=== PATIENT | male | born 1970 | race Caucasian/White ===

== ENCOUNTER 2020-01-24 08:48 | Day surgery (SDC) | payer MEDICAID ==
[~2020-01-24 08:48] MED LIST: Lactated Ringers 1,000 ML IV SCH; Lidocaine 1%/Sod Bicarbonate in NS 8.4% 1 ML Syringe IDERM PRN; Sodium Chloride 0.9% 10 ML Syringe FLUSH PRN
--- NOTE | 2020-01-24 09:32 | PCM.PREANE ---
Preanesthetic Assessment - Anesthesia/Transfusion/Family Hx Anesthesia History: Prior Anesthesia Without Reaction Family History of Anesthesia Reaction: No Transfusion History: No Prior Transfusion(s) Intubation History: Unknown - Review of Systems General: No Symptoms Pulmonary: No Symptoms (Smoker: 1ppd times 30 years ETOH: occasionally History of Methamphetamine ause:2months ago), Shortness of Breath Cardiovascular: No Symptoms (History of paroxysmal A-fibrillation/History of HTN ), Dyspnea on Exertion, Lightheadedness (positional changes) Gastrointestinal: No Symptoms (GERD), Constipation, Diarrhea, Difficulty Swallowing Neurological: No Symptoms, Numbness (bilateral hands on occasion.) Other: Reports: Easy Bruising, Diabetes (0630 DQ=375), Liver Problems, Depression (unemployed and depressed but not treated.) - Physical Assessment NPO Status Date: 01/24/20 NPO Status Time: 11:00 Vital Signs: Last Vital Signs Temp 36.8 C 01/24/20 08:55 Pulse 97 01/24/20 08:55 Resp 16 01/24/20 08:55 BP 147/89 H 01/24/20 08:55 Pulse Ox 98 01/24/20 08:55 Height: 1.73 m Weight: 70.307 kg ASA Class: 2 Mental Status: Alert & Oriented x3 Airway Class: Mallampati = 2 Dentition: Reports: Edentulous Thyro-Mental Finger Breadths: 3 Mouth Opening Finger Breadths: 3 ROM/Head Extension: Full Lungs: Clear to Auscultation, Normal Respiratory Effort Cardiovascular: Regular Rate, No Murmurs, Irregular Rhythm (history of paraxysmal atrial fibrillaton.) - Allergies Allergies/Adverse Reactions: Allergies Allergy/AdvReac Type Severity Reaction Status Date / Time No Known Allergies Allergy Verified 01/23/20 12:17 - Anesthesia Plan Pre-Op Medication Ordered: None - Acknowledgements Anesthesia Type Planned: MAC Pt an Appropriate Candidate for the Planned Anesthesia: Yes Alternatives and Risks of Anesthesia Discussed w Pt/Guardian: Yes Pt/Guardian Understands and Agrees with Anesthesia Plan: Yes PreAnesthesia Questionnaire HEENT History: Reports: None Cardiovascular History: Reports: Afib, Other (See Below) Other Cardiovascular History: HYPOTENSION Respiratory History: Reports: None Gastrointestinal History: Reports: Chronic Diarrhea, GERD Genitourinary History: Reports: None [employer] History: Reports: None Musculoskeletal History: Reports: None Neurological History: Reports: None Psychiatric History: Reports: Addiction Endocrine/Metabolic History: Reports: Diabetes, Type II Hematologic History: Reports: None Immunologic History: Reports: None Oncologic (Cancer) History: Reports: None Dermatologic History: Reports: None - Past Surgical History Head Surgeries/Procedures: Reports: None HEENT Surgical History: Reports: None Respiratory Surgical History: Reports: None GI Surgical History: Reports: Appendectomy Female Surgical History: Reports: None Male Surgical History: Reports: None Endocrine Surgical History: Reports: None Neurological Surgical History: Reports: None Musculoskeletal Surgical History: Reports: None Oncologic Surgical History: Reports: None Dermatological Surgical History: Reports: None - SUBSTANCE USE Smoking Status *Q: Current Every Day Smoker Recreational Drug Use History: Yes Recreational Drug Type: Reports: Marijuana/Hashish, Methamphetamine - HOME MEDS Home Medications: Home Meds Insulin Glarg,Human.Rec.Analog [Lantus] 54 units SQ QAM 01/23/20 [History] SitaGLIPtin [Januvia] 100 mg PO DAILY 01/23/20 [History] atorvaSTATin Calcium [Lipitor] 40 mg PO DAILY 01/23/20 [History] metFORMIN HCl [Metformin HCl] 1,000 mg PO BIDAC 01/23/20 [History] Omeprazole 20 mg PO DAILY 01/24/20 [History] - CURRENT (IN HOUSE) MEDS Current Meds: Current Medications Lactated Ringer's (Ringers, Lactated) 1,000 mls @ 125 mls/hr IV ASDIRECTED KRISTIN Stop: 01/24/20 23:00 Lidocaine/Sodium Bicarbonate (Buffered Lidocaine 1% In Ns 8.4%) 0.25 ml IDERM ONETIME PRN PRN Reason: Prior to IV Start Stop: 01/24/20 18:00 Sodium Chloride (Saline Flush) 10 ml FLUSH ASDIRECTED PRN PRN Reason: Keep Vein Open Stop: 01/24/20 18:00
[2020-01-24] MEDS ORDERED: Lidocaine 1% 4 ML ONE (10:06)
[2020-01-24] MEDS ORDERED: Midazolam 1 MG/ML 2 ML SDV ONE (10:06)
[2020-01-24] MEDS ORDERED: fentaNYL 100 MCG/2 ML SDV ONE (10:06)
[2020-01-24] MEDS ORDERED: Propofol 200 MG/20 ML SDV ONE ×2 (10:06→11:21)
[2020-01-24] MEDS ORDERED: Lactated Ringers 1,000 ML ONE (11:14)
--- NOTE | 2020-01-24 12:05 | PCM48HPAN ---
Post Anesthesia Note - EVALUATION WITHIN 48HRS OF ANESTHETIC Vital Signs in Normal Range: Yes Patient Participated in Evaluation: Yes Respiratory Function Stable: Yes Airway Patent: Yes Cardiovascular Function Stable: Yes Hydration Status Stable: Yes Pain Control Satisfactory: Yes Nausea and Vomiting Control Satisfactory: Yes Mental Status Recovered: Yes Vital Signs: Last Vital Signs Temp 36.8 C 01/24/20 08:55 Pulse 97 01/24/20 08:55 Resp 16 01/24/20 08:55 BP 147/89 H 01/24/20 08:55 Pulse Ox 98 01/24/20 08:55 - COMMENTS/OBSERVATIONS Free Text/Narrative:: no anesthesia complications noted
--- NOTE | 2020-01-24 12:52 | PROC ---
DATE OF OPERATION: 01/24/2020 SURGEON: Nena Rodgers MD PREOPERATIVE DIAGNOSES: 1. Heartburn and gastroesophageal reflux disease. 2. Need for colonoscopy due to diarrhea. POSTOPERATIVE DIAGNOSES: 1. Esophagitis. 2. Gastritis. 3. Colonic polyps. 4. Grade 2 hemorrhoids. PROCEDURES: 1. Esophagogastroduodenoscopy with biopsies. 2. Colonoscopy with polypectomy. ESTIMATED BLOOD LOSS: Minimal. COMPLICATIONS: None. INDICATION AND CONSENT: Mr. Daugherty is a 49-year-old male who has been having severe heartburn and reflux for several years. The patient has been taking some Tums and avoiding spicy foods, which helps with his symptoms. He also had been having intermittent diarrhea and sometimes mild left-sided abdominal pain. The patient presented to my clinic and discussed with him these symptoms and recommended EGD and colonoscopy to further evaluate him. We discussed risks, benefits, and alternatives. Risks discussed include perforation, bleeding, need for additional procedures, and reaction to medication. The patient asked many questions, which were answered and informed consent was obtained. DESCRIPTION OF PROCEDURE: The patient was taken to the procedure room and placed in left lateral decubitus position. Following induction of monitored anesthesia care, a time-out was performed and we began the procedure. The EGD scope was inserted through the mouth and into the esophagus. Upper esophagus was normal. Midesophagus (28cm) appeared to have some areas of linear erosions. These were 2 areas that extend down to the distal esophagus. The GE Z-line (36cm) was irregular and there was evidence of esophagitis in the GE junction and distal esophagus due to linear erosions and irregular Z-line. The scope was traversed through this area into the stomach. There was mild erythema diffusely into the stomach and more so into the antrum. First and second portion of duodenum were examined and appeared normal. Biopsies with cold forceps were taken of the antrum for H pylori as well as histology. On retroflexion, there was a small hiatal hernia, but no other abnormalities. Biopsies were taken of the 4 quadrants of the GE junction for histologic examination. Also, samples were taken in the distal as well as the midesophagus to further examine the inflammation. Once this was done, the air was withdrawn from the stomach and scope was taken out. EBL was minimal. Next, we proceeded with colonoscopy. Perianal exam was normal. Digital rectal exam was normal. Scope was inserted and taken all the way to the cecum. Appendiceal orifice and ileocecal valve were photographed. Then, upon withdrawal, there was a 5-mm polyp in the distal ascending colon that was removed with hot snare. There was another 5 mm polyp in the splenic flexure that was removed with hot snare. There was also about a 5-mm polyp in the rectum that was removed with hot snare as well. The rest of the colon appeared normal. On retroflexion, there were grade 2 hemorrhoids without any stigmata of bleeding. Air was suctioned out of the colon, and the scope was withdrawn. EBL was minimal. The patient will be allowed to go home. Plan is for the patient to follow up in clinic in 2 weeks to discuss pathology results and further followup. The patient will need to start taking PPIs to see if his esophagitis and symptoms resolve. PRINCESS /[id number] LUPE
== END 2020-01-24 12:47 | disposition home or self-care (01) ==
LOC: JD.SDS 08:48
PROVIDERS: ATTEND Surgery
DX: D12.3 Benign neoplasm of transverse colon (principal); K62.1 Rectal polyp; K29.50 Unspecified chronic gastritis without bleeding; K22.10 Ulcer of esophagus without bleeding; K21.0 Gastro-esophageal reflux disease with esophagitis; K64.1 Second degree hemorrhoids; K44.9 Diaphragmatic hernia without obstruction or gangrene; I10 Essential (primary) hypertension; E78.5 Hyperlipidemia, unspecified; E11.9 Type 2 diabetes mellitus without complications; K52.9 Noninfective gastroenteritis and colitis, unspecified; I48.0 Paroxysmal atrial fibrillation; F17.210 Nicotine dependence, cigarettes, uncomplicated; Z79.899 Other long term (current) drug therapy; Z79.4 Long term (current) use of insulin
CPT/HCPCS: 36415; 43239; 45385; 80048; J2001; J2250; J2704; J3010; J7120; 00813

== ENCOUNTER 2025-05-09 22:54 | Emergency (ER) | payer MEDICAID ==
[2025-05-10] MEDS ORDERED: Sodium Chloride 0.9% 10 ML Syringe FLUSH PRN (00:08)
[2025-05-10 00:18] LABS: BASOPHILS ABSOLUTE AUTO 0.1 K/mm3 (0.0-0.2); BASOPHILS PERCENT AUTO 0.8 % (0.0-1.0); EOSINOPHILS ABSOLUTE AUTO 0.2 K/mm3 (0.0-0.4); EOSINOPHILS PERCENT AUTO 1.7 % (0.0-6.0); HEMATOCRIT 47.2 % (42.0-52.0); HEMOGLOBIN 15.5 gm/dl (14.0-18.0); IMMATURE GRAN ABSOLUTE AUTO 0.04 K/mm3 (0.00-0.05); IMMATURE GRAN PERCENT AUTO 0.4 % (0.0-0.4); LYMPHOCYTES PERCENT AUTO 21.9 % (24.0-44.0); MEAN CORPUSCULAR HEMOGLOBIN 29.6 pg (28.0-32.0); MEAN CORPUSCULAR HGB CONC 32.8 g/dl (32.0-36.0); MEAN CORPUSCULAR VOLUME 90.1 fl (83.0-99.0); MEAN PLATELET VOLUME 10.4 fl (9.4-12.4); MONOCYTES ABSOLUTE AUTO 0.9 K/mm3 (0.0-0.8); MONOCYTES PERCENT AUTO 9.5 % (0.0-8.0); NEUTROPHILS ABSOLUTE AUTO 5.9 K/mm3 (1.8-7.7); NEUTROPHILS PERCENT AUTO 65.7 % (41.0-71.0); PLATELET COUNT,PLT 291 K/mm3 (150-400); RED BLOOD CELL COUNT 5.24 M/mm3 (4.52-5.90); WHITE BLOOD CELL COUNT,WBC 9.03 K/mm3 (3.9-11.3)
[2025-05-10 00:27] LABS: A/G RATIO 0.9 (1-2); ALBUMIN 3.3 g/dl (3.4-5.0); ANION GAP 11.3 (5-15); BILIRUBIN TOTAL 0.4 mg/dL (0.2-1.0); BUN/CREATININE RATIO 21.1 (14-18); CALCIUM 9.3 mg/dL (8.5-10.1); CREATININE 0.9 mg/dL (0.7-1.3); EST CRCL DRUG DOSING (CG) 85.85 mL/min; MAGNESIUM 1.4 mg/dL (1.8-2.4); POTASSIUM,K 4.3 mEq/L (3.5-5.1); PROTEIN TOTAL,TP 6.9 g/dl (6.4-8.2)
[2025-05-10 00:28] LABS: BASE EXCESS VENOUS 5.2 (-4.0-2.0); BICARBONATE,VENOUS 30.5 meq/L (22-26); O2 SATURATION VENOUS 44.1; PH,VENOUS 7.43 (7.30-7.40)
[2025-05-10] MEDS: Sodium Chloride 0.9% 1,000 ML IV ONE ×2 (00:54→02:16)
[2025-05-10] MEDS: Insulin Regular, Human 100 Units/ML 10 ML Vial IV ONE (02:15)
[2025-05-10] MEDS: Magnesium Oxide 400 MG Tab PO ONE (03:15)
== END 2025-05-10 03:30 | disposition home or self-care (01) ==
LOC: JD.ED 22:54
DX: E11.65 Type 2 diabetes mellitus with hyperglycemia (principal); I48.91 Unspecified atrial fibrillation; Z79.899 Other long term (current) drug therapy; Z79.4 Long term (current) use of insulin; Z79.84 Long term (current) use of oral hypoglycemic drugs; Z90.49 Acquired absence of other specified parts of digestive tract
CPT/HCPCS: 36415; 71045; 80053; 82803; 82947; 83735; 83930; 85025; 96360; 96361; 99285; A9270; J1815; J7030; 99283

== ENCOUNTER 2025-09-30 16:08 | Emergency (ER) | payer MEDICAID ==
[2025-09-30] MEDS: Sodium Chloride 0.9% 10 ML Syringe FLUSH PRN (16:43)
[2025-09-30 17:20] LABS: BASOPHILS ABSOLUTE AUTO 0.1 K/mm3 (0.0-0.2); BASOPHILS PERCENT AUTO 0.5 % (0.0-1.0); EOSINOPHILS ABSOLUTE AUTO 0.2 K/mm3 (0.0-0.4); EOSINOPHILS PERCENT AUTO 1.9 % (0.0-6.0); IMMATURE GRAN ABSOLUTE AUTO 0.06 K/mm3 (0.00-0.05); IMMATURE GRAN PERCENT AUTO 0.6 % (0.0-0.4); LYMPHOCYTES ABSOLUTE AUTO 2.1 K/mm3 (1.0-4.8); LYMPHOCYTES PERCENT AUTO 21.3 % (24.0-44.0); MEAN PLATELET VOLUME 10.4 fl (9.4-12.4); MONOCYTES ABSOLUTE AUTO 1.0 K/mm3 (0.0-0.8); MONOCYTES PERCENT AUTO 10.2 % (0.0-8.0); NEUTROPHILS ABSOLUTE AUTO 6.5 K/mm3 (1.8-7.7); NEUTROPHILS PERCENT AUTO 65.5 % (41.0-71.0); NRBC ABSOLUTE 0.00 (0.00-0.02); NRBC PERCENT 0.0 % (0.0-0.2); PLATELET COUNT,PLT 285 K/mm3 (150-400); RED BLOOD CELL COUNT 5.52 M/mm3 (4.52-5.90); WHITE BLOOD CELL COUNT,WBC 9.85 K/mm3 (3.9-11.3)
[2025-09-30] MEDS: Alum Hydrox/Mag Hydrox/Simeth 30 ML, Lidocaine 2% 15 ML PO ONE (17:22)
[2025-09-30 17:30] LABS: A/G RATIO 1.0 (1-2); ALANINE AMINOTRANSFERASE,ALT 14.0 U/L (16-63); ASPARTATE AMNIOTRANSFERASE,AST 10.0 U/L (15-37); BILIRUBIN TOTAL 0.7 mg/dL (0.2-1.0); BLOOD UREA NITROGEN,BUN 21.0 mg/dL (7-18); CARBON DIOXIDE,CO2 25.0 mEq/L (21-32); CHLORIDE,CL 100.0 mEq/L (98-107); CREATININE 0.8 mg/dL (0.7-1.3); EST CRCL DRUG DOSING (CG) 106.46 mL/min; ESTIMATED GFR 104.0 mL/min (>60); GLUCOSE RANDOM 224.0 mg/dL (70-99); POTASSIUM,K 4.5 mEq/L (3.5-5.1); PROTEIN TOTAL,TP 7.5 g/dl (6.4-8.2); SODIUM,NA 139.0 mEq/L (136-145)
[2025-09-30 17:40] LABS: BASE EXCESS VENOUS 1.4 (-4.0-2.0); BICARBONATE,VENOUS 25.0 meq/L (22-26); O2 SATURATION VENOUS 59; PCO2 VENOUS 36.0 mmHg (41-51); PH,VENOUS 7.45 (7.30-7.40); PO2 VENOUS 34.0 mmHG (40-80)
[2025-09-30 17:56] LABS: APPEARANCE,URINE CLEAR (Clear); GLUCOSE,URINE 2+ (Negative); OCCULT BLOOD,URINE TRACE-LYSED (Negative)
[2025-09-30 18:27] LABS: EPITHELIAL CELLS,URINE 0-5 /hpf (0-5)
[2025-09-30 18:28] LABS: FINE GRANULAR CASTS,URINE 0-5 /lpf (0-5)
== END 2025-09-30 19:40 | disposition home or self-care (01) ==
LOC: JD.ED 16:08
DX: E11.65 Type 2 diabetes mellitus with hyperglycemia (principal); I48.91 Unspecified atrial fibrillation; K21.9 Gastro-esophageal reflux disease without esophagitis; Z75.3 Unavailability and inaccessibility of health-care facilities; Z79.84 Long term (current) use of oral hypoglycemic drugs; Z79.899 Other long term (current) drug therapy
CPT/HCPCS: 36415; 71045; 80053; 81001; 82803; 82947; 85025; 87428; 93005; 96360; 99284; A9270; J3490; J7030; 93010